=== PATIENT | female | born 1965 | race Asian ===

== ENCOUNTER 2018-02-17 11:46 | Day surgery (SDC) | payer BC ==
[2018-02-17] MEDS ORDERED: PROPOFOL 20 ML (15:20)
[2018-02-17] MEDS ORDERED: FENTAnyl 50 MCG/ML VIAL (15:20)
== END 2018-02-17 17:01 | disposition home or self-care (01) ==
LOC: GIL 11:46
DX: K29.30 Chronic superficial gastritis without bleeding (principal)
CPT/HCPCS: 43239; 88305; 88312

== ENCOUNTER 2019-02-28 07:28 | Day surgery (SDC) | payer BC ==
[2019-02-28] MEDS ORDERED: PROPOFOL 20 ML (12:50)
== END 2019-02-28 13:28 | disposition home or self-care (01) ==
LOC: GIL 07:28
DX: K76.6 Portal hypertension (principal); K31.89 Other diseases of stomach and duodenum
CPT/HCPCS: 43239; 88305